=== PATIENT | female | born 1955 | race Caucasian/White ===

== ENCOUNTER 2017-11-21 03:19 | Emergency (ER) | payer OTHER ==
[~2017-11-21] VITALS: Ht 160 cm; Wt 85.1 kg
[~2017-11-21 03:19] MED LIST: ALBUTEROL SULF8.5 GM IH; ALPRAZOLAM0.5 MG PO; CIPROFLOXACIN500 M1 PO; EFFEXOR75 MG PO; FISH OIL500 MG PO; LEVAQUIN750 MG PO; LIPITOR10 MG PO; LIPITOR20 MG PO; LISINOPRIL-HCT1 EACH PO; PHENERGAN-CODE120 ML PO; PRINZIDE 10-121 EACH PO; VENLAFAXINE HCL75 MG PO; VITAMIN D1000 INTUN PO; VITAMIN D1000 UNIT PO; ZEGERID20 MG PO; ZYRTEC10 M3 PO
[2017-11-21 03:47] LABS: HEMATOCRIT 41.8 % (36.0-46.0); HEMOGLOBIN 14.4 G/DL (11.9-15.5); MCH 31.1 PG (29.0-34.0); MCHC 34.4 G/DL (30.0-36.0); MCV 90.3 FL (83-99); PLATELET COUNT 219 K/uL (156-360); RBC DIS.WIDTH-CV 12.5 % (11.8-14.6); RBC DIS.WIDTH-SD 40.8 % (39-53); RED BLOOD COUNT 4.63 M/uL (3.80-5.20); WHITE BLOOD COUNT 9.9 K/uL (4.1-10.2)
[2017-11-21 03:56] LABS: ALBUMIN 4.3 g/dL (3.2-4.8); CHLORIDE 107 mEq/L (99-109); POTASSIUM 3.9 mEq/L (3.7-5.4); SODIUM 143 mEq/L (136-147)
[2017-11-21 03:59] LABS: GLUCOSE 124 mg/dL (70-99); TOTAL PROTEIN 6.7 g/dL (6.4-8.3)
[2017-11-21 04:01] LABS: TOTAL BILIRUBIN 0.4 mg/dL (0.0-1.0)
[2017-11-21 04:02] LABS: ALKALINE PHOSPHATASE 71 IU/L (3-129); CREATININE 1.2 mg/dL (0.6-1.3); GFR ESTIMATE (CALCULATED) 49 mL/min/
[2017-11-21 04:03] LABS: UREA NITROGEN (BUN) 18 mg/dL (9-23)
[2017-11-21 04:04] LABS: AST (GOT) 22 IU/L (2-34)
[2017-11-21 04:05] LABS: ALT (GPT) 32 IU/L (3-49)
[2017-11-21 05:09] LABS: LIPASE 49 U/L (1.0-51.0)
[2017-11-21 05:14] LABS: TROP-I INTERPRETATION NEGATIVE; TROPONIN-I < 0.01 ng/mL (0.0-0.30)
[2017-11-21] MEDS ORDERED: ZOFRAN4 MG PO (05:47)
[2017-11-21] MEDS ORDERED: BENTYL20 MG PO (05:47)
[2017-11-21 06:37] VITALS: BP 119/71
== END 2017-11-21 06:39 | disposition home or self-care (01) ==
LOC: EME 03:19
DX: K52.9 Noninfective gastroenteritis and colitis, unspecified (principal); I10 Essential (primary) hypertension; Z87.891 Personal history of nicotine dependence
CPT/HCPCS: 74177; 80053; 81003; 83690; 84484; 85027; 93005; 99281; 99285; J2405; J7030